=== PATIENT | female | born 1980 | race Caucasian/White ===

== ENCOUNTER 2017-01-25 19:41 | Emergency (ER) | payer OTHER, MEDICAID ==
[~2017-01-25] VITALS: Ht 160 cm; Wt 78.0 kg
[~2017-01-25 19:41] MED LIST: CELL500T PO; COUM5TAB PO; LAMO25 PO; MAXA10TA2 PO; MECL25 PO; NYST500000 PO; OMEP20CA5 PO; PRED15SO7 PO; QUET1TAB66 PO; RISP1 PO; SUCR1TAB6 PO; XANA1TAB6 PO
[2017-01-25 19:54] VITALS: BP 111/80; PULSE 92; RESP 18; TEMP 98.6; O2SAT 98
[2017-01-25] MEDS ORDERED: MORPHINE SULFATE 4 MG/ML INJ IV PUSH ONE (20:00)
[2017-01-25] MEDS ORDERED: WARF-18 PO (20:02)
[2017-01-25] MEDS ORDERED: WARF-23 PO (20:02)
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
[2017-01-25] MEDS ORDERED: ATOR1TAB18 PO (20:11)
[2017-01-25] MEDS ORDERED: [UNRECOGNIZED DRUG - OTHER] PO (20:11)
[2017-01-25] MEDS ORDERED: LACO100 PO (20:11)
[2017-01-25] MEDS ORDERED: FAMO20TA2 PO (20:11)
[2017-01-25] MEDS ORDERED: PANT40TA3 PO (20:11)
[2017-01-25] MEDS ORDERED: OXYC30TA PO (20:11)
[2017-01-25] MEDS ORDERED: LINA145C PO (20:11)
[2017-01-25] MEDS ORDERED: ZETI10TA5 PO (20:11)
[2017-01-25] MEDS ORDERED: DULE100A INH (20:11)
[2017-01-25] MEDS ORDERED: LISI-515 PO (20:11)
[2017-01-25] MEDS ORDERED: FOLI1TAB4 PO (20:11)
[2017-01-25] MEDS ORDERED: DEPA500T3 PO (20:11)
[2017-01-25] MEDS ORDERED: HYDR-3534 PO (20:11)
[2017-01-25 20:13] VITALS: RESP 18; O2SAT 98
[2017-01-25] MEDS ORDERED: LORazepam 2 MG/ML VIAL IV PUSH ONE (20:15)
[2017-01-25] MEDS: SODIUM CHLORIDE 0.9% FLUSH 10 ML FLUSH IVF PRN ×2 (20:25→23:13)
[2017-01-25 20:46] LABS: AUTOMATED NEUTROPHIL # 2.4 TH/MM3 (1.8-7.7); BASOPHIL % 0.7 % (0.0-2.0); EOSINOPHIL % 0.9 % (0.0-4.0); HEMATOCRIT 36.5 % (35.0-46.0); HEMO FLAGS DIFF FINAL; LYMPH % 32.1 % (9.0-44.0); LYMPHOCYTE # 1.5 TH/MM3 (1.0-4.8); MEAN CELL VOLUME 91.9 FL (80.0-100.0); MEAN CORPUSCULAR HEMOGLOBIN 31.5 PG (27.0-34.0); MEAN CORPUSCULAR HGB CONC 34.3 % (32.0-36.0); MONO % 14.2 % (0.0-8.0); NEUT % 52.1 % (16.0-70.0); PLATELET COUNT 292 TH/MM3 (150-450); RED BLOOD COUNT 3.98 MIL/MM3 (4.00-5.30); RED CELL DISTRIBUTION WIDTH 13.1 % (11.6-17.2); WHITE BLOOD COUNT 4.6 TH/MM3 (4.0-11.0)
[2017-01-25 20:57] LABS: INTERNATIONAL NORMALIZED RATIO 1.6 RATIO; PROTHROMBIN TIME - PATIENT 18.3 SEC (9.8-11.6)
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
[2017-01-25 21:48] LABS: ANION GAP 8 MEQ/L (5-15); BICARBONATE 28.7 MEQ/L (21.0-32.0); BLOOD UREA NITROGEN 30 MG/DL (7-18); CHLORIDE 97 MEQ/L (98-107); CREATINE KINASE 151 U/L (26-192); GLOMERULAR FILTRATION RATE 27 ML/MIN (>89); SODIUM (NA) 134 MEQ/L (136-145)
[2017-01-25 21:49] LABS: BHCG SCREEN QUALITATIVE 8 MIU/ML (0-5); POTASSIUM 4.2 MEQ/L (3.5-5.1)
[2017-01-25 22:02] LABS: CKMB 1.4 NG/ML (0.5-3.6)
[2017-01-25] MEDS ORDERED: LIDOCAINE HCL 1% 50 ML VIAL INFIL ONE (22:15)
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
--- NOTE | 2017-01-25 22:41 | PD ---
Physical Exam Date Seen by Provider: Jan 25, 2017 Time Seen by Provider: 22:39 Data Data Last Documented VS Vital Signs Date Time Temp Pulse Resp B/P Pulse Ox O2 Delivery O2 Flow Rate FiO2 01/25/17 20:13 18 98 Room Air 01/25/17 19:54 98.6 92 111/80 Orders Basic Metabolic Panel (Bmp) (01/25/17 19:58) Complete Blood Count With Diff (01/25/17 19:58) Prothrombin Time / Inr (Pt) (01/25/17 19:58) Act Partial Throm Time (Ptt) (01/25/17 19:58) Type And Screen (01/25/17 19:58) Alcohol (Ethanol) (01/25/17 19:58) Chest, Single Ap (01/25/17 19:58) Ct Brain W/O Iv Contrast(Rout) (01/25/17 19:58) Electrocardiogram (01/25/17 19:58) Iv Access Insert/Monitor (01/25/17 19:58) Ecg Monitoring (01/25/17 19:58) Oximetry (01/25/17 19:58) Oxygen Administration (01/25/17 19:58) Sodium Chloride 0.9% Flush (Ns Flush) (01/25/17 20:00) Bhcg Screen Qualitative (01/25/17 19:58) Troponin I (01/25/17 19:58) Ckmb (Isoenzyme) Profile (01/25/17 19:58) Morphine Inj (Morphine Inj) (01/25/17 20:00) Hand, Limited (2vws) (01/25/17 ) Hand, Limited (2vws) (01/25/17 ) Lorazepam Inj (Ativan Inj) (01/25/17 20:15) CKMB (01/25/17 20:15) CKMB% (01/25/17 20:15) Lidocaine 1% Inj (50 Ml) (Xylocaine 1% I (01/25/17 22:15) Ct Facial Bones W/O Iv Cont (01/25/17 ) Ct Thorax/ Chest Wo Iv Contras (01/25/17 ) Ct Abd/Pel W/O Iv Contrast (01/25/17 19:58) Labs Laboratory Tests Test 01/25/17 20:15 White Blood Count 4.6 TH/MM3 Red Blood Count 3.98 MIL/MM3 Hemoglobin 12.5 GM/DL Hematocrit 36.5 % Mean Corpuscular Volume 91.9 FL Mean Corpuscular Hemoglobin 31.5 PG Mean Corpuscular Hemoglobin 34.3 % Concent Red Cell Distribution Width 13.1 % Platelet Count 292 TH/MM3 Mean Platelet Volume 7.6 FL Neutrophils (%) (Auto) 52.1 % Lymphocytes (%) (Auto) 32.1 % Monocytes (%) (Auto) 14.2 % Eosinophils (%) (Auto) 0.9 % Basophils (%) (Auto) 0.7 % Neutrophils # (Auto) 2.4 TH/MM3 Lymphocytes # (Auto) 1.5 TH/MM3 Monocytes # (Auto) 0.7 TH/MM3 Eosinophils # (Auto) 0.0 TH/MM3 Basophils # (Auto) 0.0 TH/MM3 CBC Comment DIFF FINAL Differential Comment Prothrombin Time 18.3 SEC Prothromb Time International 1.6 RATIO Ratio Activated Partial 39.0 SEC Thromboplast Time Sodium Level 134 MEQ/L Potassium Level 4.2 MEQ/L Chloride Level 97 MEQ/L Carbon Dioxide Level 28.7 MEQ/L Anion Gap 8 MEQ/L Blood Urea Nitrogen 30 MG/DL Creatinine 2.06 MG/DL Estimat Glomerular Filtration 27 ML/MIN Rate Random Glucose 110 MG/DL Calcium Level 9.6 MG/DL Total Creatine Kinase 151 U/L Creatine Kinase MB 1.4 NG/ML Troponin I LESS THAN 0.02 NG/ML Beta HCG, Qualitative 8 MIU/ML Ethyl Alcohol Level LESS THAN 3 MG/DL Blood Type O POSITIVE Antibody Screen NEGATIVE Blood Bank Comment [facility] Supervised Visit with BHUMI: No Narrative Course This patient was initially evaluated by Dr. Chen. Please see her note for details. I was asked to evaluate this patient's lacerations. On my exam patient is alert, tearful. There is a 1 cm superficial laceration of the radial aspect of the first digit of the right hand. There is a subcentimeter superficial laceration on the distal third of the bridge of the nose. Wounds were cleaned and evaluated. I do not feel that laceration repair is necessary at this time. Dr. Chen retains care of this patient. Please see her note for disposition. Chanel Claudio Jan 25, 2017 22:41 REPAIR: The area of the laceration was prepped with Betadine and sterilely draped. The laceration was infiltrated with [-]. The wound was copiously irrigated and explored without evidence of foreign body, tendon injury or neurovascular injury. The wound was closed using [-]. This was a [-] layer repair. A sterile dressing was applied. The patient was advised to keep the dressing clean and dry. Patient tolerated the procedure well. Chanel Claudio Jan 25, 2017 22:41
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
[2017-01-25] MEDS ORDERED: SODIUM CHLOR 0.9% 1000 ML INJ 1,000 ML IV ONE (23:00)
[2017-01-25 23:14] VITALS: BP 118/71; PULSE 87; RESP 18; O2SAT 97
[2017-01-25] MEDS ORDERED: IODIXANOL 320 MG/ML 10 ML VIAL (for Rad CT) IV ONE (23:16)
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
[2017-01-26] MEDS ORDERED: ACET500T36 PO (01:04)
[2017-01-26] MEDS ORDERED: TETANUS/DIPHTHERIA TOXOID ADULT 0.5 ML VIAL IM ONE (01:15)
[2017-01-26] MEDS ORDERED: MYCO500 PO (10:44)
--- NOTE | 2017-01-26 19:12 | EKG ---
Date Performed: 01/25/2017 Time Performed: 21:48:46 PTAGE: 36 years EKG: SINUS TACHYCARDIA ABNORMAL RHYTHM ECG PREVIOUS TRACING : 05/29/2009 18.46 Compared to prior tracing no significant change DOCTOR: Max Meng Interpretating Date/Time 01/26/2017 19:10:25
== END 2017-01-26 02:38 | disposition home or self-care (01) ==
LOC: NEPC 19:41
DX: R07.9 Chest pain, unspecified (principal); S61.011A Laceration without foreign body of right thumb without damage to nail, initial encounter; S01.21XA Laceration without foreign body of nose, initial encounter; M79.642 Pain in left hand; R00.0 Tachycardia, unspecified; R06.02 Shortness of breath; R10.31 Right lower quadrant pain; I10 Essential (primary) hypertension; V49.88XA Car occupant (driver) (passenger) injured in other specified transport accidents, initial encounter; Z23 Encounter for immunization; Z79.01 Long term (current) use of anticoagulants; Z86.2 Personal history of diseases of the blood and blood-forming organs and certain disorders involving the immune mechanism; Z87.39 Personal history of other diseases of the musculoskeletal system and connective tissue; Z86.59 Personal history of other mental and behavioral disorders; Z86.79 Personal history of other diseases of the circulatory system; Z86.711 Personal history of pulmonary embolism; Z87.891 Personal history of nicotine dependence
CPT/HCPCS: 70450; 70486; 71010; 71250; 71275; 73120; 74174; 74176; 80048; 80307; 82550; 82552; 84484; 84703; 85025; 85610; 85730; 86850; 86900; 86901; 90471; 90714; 93005; 96361; 96374; 96375; 99285; J2060; J2270; J7030; Q9967